=== PATIENT | male | born 1980 | race Two or more races ===

== ENCOUNTER 2017-12-25 19:18 | Emergency (ER) | payer OTHER ==
[~2017-12-25] VITALS: Ht 175.3 cm; Wt 93.0 kg
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
--- NOTE | 2017-12-25 20:22 | NUR ---
DR CIFUENTES INTO EVAL PATIENT
[2017-12-25] MEDS: HYDROCODONE/APAP 5-325MG TABLET PO ONE (20:34)
[2017-12-25] MEDS ORDERED: HYDROCODONE/APAP 5-325MG TABLET ONE (20:34)
--- NOTE | 2017-12-25 21:45 | NUR ---
Patient discharged to home in stable conditon. Written and verbal after care instructions given. Patient verbalizes understanding of instructions. Patient ambulated out of ER with steady gait, no acute signs of distress, VSS, all belongings taken, provided CD of xray and CT.
[2017-12-25 21:46] VITALS: BP 140/80
== END 2017-12-25 21:45 | disposition home or self-care (01) ==
LOC: ER 19:18
DX: S16.1XXA Strain of muscle, fascia and tendon at neck level, initial encounter (principal); R07.89 Other chest pain; I10 Essential (primary) hypertension; V43.52XA Car driver injured in collision with other type car in traffic accident, initial encounter; Y93.89 Activity, other specified; Y92.410 Unspecified street and highway as the place of occurrence of the external cause; Y99.8 Other external cause status
CPT/HCPCS: 71045; 72125; 93005; A4663